=== PATIENT | male | born 1970 | race Caucasian/White ===

== ENCOUNTER 2023-07-10 06:20 | Day surgery (SDC) | payer OTHER, MEDICAID ==
[~2023-07-10] VITALS: Ht 165.1 cm; Wt 62.7 kg
[2023-07-10] MEDS ORDERED: PROPOFOL 1% 20 ML VIAL IVP ONE (06:21)
[2023-07-10] MEDS ORDERED: ROCURONIUM BROMIDE 10 MG/ML 5 ML VIAL IVP ONE (06:21)
[2023-07-10] MEDS ORDERED: SUGAMMADEX SODIUM 200 MG/2 ML VIAL IVP ONE (06:21)
[2023-07-10] MEDS ORDERED: ONDANSETRON HCL 4 MG/2 ML VIAL IVP ONE (06:21)
[2023-07-10] MEDS ORDERED: DEXAMETHASONE SOD PHOS 4 MG/ML VIAL IVP ONE (06:21)
[2023-07-10] MEDS ORDERED: LIDOCAINE/PF 2% 5 ML VIAL IM ONE (06:21)
[2023-07-10] MEDS ORDERED: GLUCAGON,HUMAN RECOMBINANT 1 MG VIAL IVP ONE (06:21)
[2023-07-10] MEDS ORDERED: RINGERS SOLUTION,LACTATED 1,000 ML IV ONE ×2 (06:30→10:05)
[2023-07-10] MEDS ORDERED: RINGERS SOLUTION,LACTATED 0 ML IV ONE (07:22)
[2023-07-10] MEDS ORDERED: AMPICILLIN SODIUM 2 GM/NS 100 ML IV ONE (07:33)
[2023-07-10 08:15] LABS: BASOPHILS % (AUTO) 0.2 % (0.0-2.0); EOSINOPHILS % (AUTO) 0.7 % (1.0-6.0); HEMATOCRIT 44.8 % (41-53); HEMOGLOBIN 15.3 g/dL (13.5-17.5); LYMPHOCYTES # (AUTO) 1.8 K/uL (1.0-4.8); LYMPHOCYTES % (AUTO) 20.7 % (22.0-44.0); MEAN CORPUSCULAR HEMOGLOBIN 32.3 pg (26.0-34.0); MEAN CORPUSCULAR HGB CONC 34.2 G/dL (31.0-37.0); MEAN CORPUSCULAR VOLUME 94 fL (80-100); MONOCYTES # (AUTO) 0.9 K/uL (0.1-1.0); MONOCYTES % (AUTO) 10.3 % (2.0-9.0); NEUTROPHILS % (AUTO) 68.1 % (40.0-70.0); PLATELET COUNT (AUTO) 391 K/uL (150-450); RED BLOOD CELL COUNT(AUTO) 4.74 MIL/uL (4.50-5.90); RED CELL DISTRIBUTION WIDTH 13.5 % (11.5-14.5); WHITE BLOOD COUNT (AUTO) 8.8 K/uL (4.5-11.0)
[2023-07-10 08:24] LABS: PROTHROMBIN TIME 10.7 SEC (9.4-11.6)
[2023-07-10 08:54] LABS: ANION GAP 4 mmol/L (8-16); CALCIUM, TOTAL 8.9 mg/dL (8.8-10.5); CARBON DIOXIDE 30 mmol/L (22-29); CHLORIDE 104 mmol/L (98-107); CREATININE 0.98 mg/dL (0.60-1.30); GLOMERULAR FILTR. RATE CALC > 60 mL/min (>60); GLUCOSE,RANDOM 100 mg/dL (70-110); POTASSIUM 4.1 mmol/L (3.5-5.1); SODIUM SERUM 138 mmol/L (136-145); UREA NITROGEN, BLOOD 12 mg/dL (7-18)
[2023-07-10 09:00] LABS: ALANINE AMINOTRANSFERASE 25 U/L (12-78); ALBUMIN 3.4 g/dL (3.4-5.0); ALKALINE PHOSPHATASE 102 U/L (46-116); ASPARTATE AMINOTRANSFERASE 22 U/L (15-37); BILIRUBIN,TOTAL 0.3 mg/dL (0.1-1.0); TOTAL PROTEIN, SERUM 6.7 g/dL (6.4-8.2)
[2023-07-10] MEDS ORDERED: BACL10TA PO (09:28)
[2023-07-10] MEDS ORDERED: DIVA-112 PO (09:28)
[2023-07-10] MEDS ORDERED: DIVA-111 PO (09:28)
[2023-07-10] MEDS ORDERED: MULT-1203 PO (09:28)
[2023-07-10] MEDS ORDERED: ASCO500 PO (09:29)
[2023-07-10] MEDS ORDERED: DIPH-1237 PO (09:29)
[2023-07-10] MEDS ORDERED: MIRT-149 PO (09:29)
[2023-07-10] MEDS ORDERED: SODIUM CHLORIDE 0.9% 0 ML ONE (10:03)
== END 2023-07-10 13:05 | disposition home or self-care (01) ==
LOC: SURGERY 06:20
PROVIDERS: ATTEND Dentist General Practice
DX: K05.30 Chronic periodontitis, unspecified (principal); K02.9 Dental caries, unspecified; G80.9 Cerebral palsy, unspecified; G40.909 Epilepsy, unspecified, not intractable, without status epilepticus; Z79.01 Long term (current) use of anticoagulants; Z79.899 Other long term (current) drug therapy; Z98.890 Other specified postprocedural states
CPT/HCPCS: 41899; 71045; 80053; 85025; 85610; 85730; 36415; 93005; J1610; J0290; J2704; J1100; J3490 ×2; J2405; Q9967; J7120; J7030